=== PATIENT | female | born 1945 | race Caucasian/White ===

== ENCOUNTER 2017-05-05 05:37 | Day surgery (SDC) | payer MEDICARE ==
[2017-05-04 10:51] VITALS: BMI 30.1
[2017-05-05 06:55] LABS: #Eosinphils 0.2 thou/uL (0.0-0.7); #Neutrophils 5.4 thou/uL (1.40-6.50); %Basophils 0.5 % (0.0-1.0); %Eosinophils 2.4 % (0.0-10.0); %Lymphocytes 23.1 % (21.0-51.0); %Monocytes 11.8 % (0.0-10.0); %Neutrophils 62.2 % (42.0-75.0); Hemoglobin 12.2 g/dL (12.0-16.0); Mean Corpuscular HGB CONC 33.1 g/dL (32.0-36.0); Mean Corpuscular Volume 96.6 fl (81.0-99.0); Mean Platelet Volume 8.6 fL (7.4-10.4); Platelet Count 284 thou/uL (130-400); RBC Distribution Width 12.4 % (11.5-14.5); Red Blood Cell (RBC) Count 3.82 mill/uL (4.20-5.40); White Blood Cell (WBC) Count 8.6 thou/uL (4.8-10.8)
[2017-05-05 07:13] LABS: INR-International Normal Ratio 0.9; PTT 26.4 SEC (22.9-36.1); Prothrombin Time 11.9 SEC (12.0-14.7)
[2017-05-05 07:14] LABS: Anion Gap 17 mmol/L (10-20); BUN (Urea Nitrogen) 14 mg/dL (9.8-20.1); Calc. Creatinine Clearance 99 mL/min (70-130); Calcium 9.3 mg/dL (7.8-10.44); Carbon Dioxide 25 mmol/L (23-31); Chloride 103 mmol/L (98-107); Estimated GFR-MDRD 75; Glucose 109 mg/dL (83-110); Potassium 3.5 mmol/L (3.5-5.1); Sodium 141 mmol/L (136-145)
[2017-05-05] MEDS ORDERED: Midazolam HCl 2 mg/2 ml Vial ONE (07:22)
[2017-05-05] MEDS ORDERED: Fentanyl 100 MCG/2 ML VIAL ONE (07:22)
--- NOTE | 2017-05-05 08:52 | OP ---
DATE OF PROCEDURE: 05/05/2017 PREOPERATIVE DIAGNOSIS: Acute L3 compression fracture with delayed healing. POSTOPERATIVE DIAGNOSIS: Acute L3 compression fracture with delayed healing. ANESTHESIA: TIVA. PROCEDURE: L3 kyphoplasty/vertebral augmentation with MMA. SUMMARY: Risks and benefits were discussed and informed consent was obtained. She was taken to the outside laborer using the biplane fluoroscopy unit. After standard prep and drape, the right L3 pedicle was easily identified. Local anesthetic was used with 50% mixture of 2% lidocaine and 0.25% Marcaine wi th epinephrine. Trocar was advanced easily down to the L3 pedicle and advanced under AP images avoid ing the medial wall of the pedicle. Lateral images were obtained. Upon reaching the vertebral body, the trocar was passed to the junction of the posterior one-third, anterior two-thirds of the vertebr al body. The stylet was removed. The curved needle balloon catheter was then passed into the trocar crossing the midline, taking care not to violate the anterior wall of the vertebral body. Balloon w as passed. Catheter was removed. Balloon was inflated. Maximum pressure of 110 psi to achieve cavi ty creation. The balloon was deflated and negative pressure withdrawn. Curve needle was then passed through the trocar for MMA injection. Injection was accomplished over the superior endplate. Total of 3 mL was noted that MMA was passing into the endplate slight pass into the disk space. Injection was terminated. Needle was then redirected over the inferior endplate and an additional 3 mL of MMA was injected achieving bilateral spread, anterior and posterior spread, and MMA injection was termin ated. Upon contrast, MMA reaching the posterior wall. The stylet was then replaced into the trocar. Trocar was removed, terminating the procedure. She tolerated the procedure well. There were no co mplications. Total MMA injected was 6 mL.
[2017-05-05] MEDS ORDERED: Propofol 200 MG/20 ML VIAL ONE (13:18)
[2017-05-05] MEDS ORDERED: Glycopyrrolate 0.2 MG/ML 5 ML SYRINGE ONE (13:18)
[2017-05-05] MEDS ORDERED: Iopamidol 370 76% 50 ML VIAL FS ONE (16:10)
--- NOTE | 2017-05-06 07:16 | EKG ---
Test Reason : PREOP Blood Pressure : / mmHG Vent. Rate : 067 BPM Atrial Rate : 067 BPM P-R Int : 174 ms QRS Dur : 104 ms QT Int : 432 ms P-R-T Axes : 074 024 049 degrees QTc Int : 456 ms Normal sinus rhythm Normal ECG No previous ECGs available Confirmed by MELI CARTER, DR. Villegas ([id number]) on 05/06/2017 7:16:09 AM Referred By: BASHIR Confirmed By:DR. Bakari GARRISON MD
== END 2017-05-05 10:44 | disposition home or self-care (01) ==
LOC: CCL 05:37
PROVIDERS: ATTEND Anesthesiology Pain Medicine
PROC: 0QS03ZZ Reposition Lumbar Vertebra, Percutaneous Approach (ICD-10-PCS; principal; 2017-05-05)
PROC: 0QU03JZ Supplement Lumbar Vertebra with Synthetic Substitute, Percutaneous Approach (ICD-10-PCS; 2017-05-05)
DX: S32.039G Unspecified fracture of third lumbar vertebra, subsequent encounter for fracture with delayed healing (principal); M79.7 Fibromyalgia; J44.9 Chronic obstructive pulmonary disease, unspecified; Z79.891 Long term (current) use of opiate analgesic; Z79.899 Other long term (current) drug therapy; Z88.5 Allergy status to narcotic agent; Z88.2 Allergy status to sulfonamides; Z88.8 Allergy status to other drugs, medicaments and biological substances; Z98.82 Breast implant status; Z95.1 Presence of aortocoronary bypass graft; Z96.1 Presence of intraocular lens; Z90.710 Acquired absence of both cervix and uterus; Z90.81 Acquired absence of spleen; Z90.49 Acquired absence of other specified parts of digestive tract; Z87.440 Personal history of urinary (tract) infections
CPT/HCPCS: 22514; 80048; 85025; 85610; 85730; 93005; 93010; J2250; J2704; J3010

== ENCOUNTER 2017-08-08 12:55 | Day surgery (SDC) | payer MEDICARE ==
[2017-08-07 09:22] VITALS: BMI 29.1
[2017-08-08 14:52] LABS: Hemoglobin 12.5 g/dL (12.0-16.0); Mean Corpuscular HGB CONC 31.3 g/dL (32.0-36.0); Mean Corpuscular Hemoglobin 29.9 pg (27.0-31.0); Mean Corpuscular Volume 95.7 fl (81.0-99.0); Platelet Count 282 thou/uL (130-400); RBC Distribution Width 12.4 % (11.5-14.5); Red Blood Cell (RBC) Count 4.17 mill/uL (4.20-5.40); White Blood Cell (WBC) Count 8.4 thou/uL (4.8-10.8)
[2017-08-08 15:13] LABS: Anion Gap 12 mmol/L (10-20); BUN (Urea Nitrogen) 11 mg/dL (9.8-20.1); Calc. Creatinine Clearance 107 mL/min (70-130); Carbon Dioxide 29 mmol/L (23-31); Chloride 100 mmol/L (98-107); Estimated GFR-MDRD 82; Glucose 88 mg/dL (83-110); Potassium 3.8 mmol/L (3.5-5.1); Sodium 137 mmol/L (136-145)
[2017-08-08] MEDS ORDERED: CEFAZOLIN/Water 2 GM/20 ML SYRINGE ONE (15:17)
--- NOTE | 2017-08-08 16:08 | EKG ---
Test Reason : PREOP Blood Pressure : / mmHG Vent. Rate : 063 BPM Atrial Rate : 063 BPM P-R Int : 182 ms QRS Dur : 108 ms QT Int : 438 ms P-R-T Axes : 079 027 056 degrees QTc Int : 448 ms Normal sinus rhythm Non-specific intra-ventricular conduction delay Abnormal ECG Confirmed by POP ELAM ([id number]) on 08/08/2017 4:08:10 PM Referred By: BASHIR Confirmed By:POP ELAM
[2017-08-08] MEDS ORDERED: PROPOFOL 200 MG/20 ML VIAL ONE (16:10)
[2017-08-08] MEDS ORDERED: Bupivacaine 0.5% 10 ML VIAL ONE (16:28)
[2017-08-08] MEDS ORDERED: Lidocaine 2% w/Epinephrine 1:200K 20 ML VIAL ONE (16:30)
[2017-08-08] MEDS ORDERED: Bupivacaine PF 0.5% 30 ML VIAL ONE (16:30)
[2017-08-08] MEDS ORDERED: Propofol 500 MG/50 ML VIAL ONE (16:42)
[2017-08-08] MEDS ORDERED: Fentanyl 100 MCG/2 ML VIAL ONE ×2 (16:42→18:03)
--- NOTE | 2017-08-08 19:16 | OP ---
DATE OF SERVICE: 08/08/2017 PREOPERATIVE DIAGNOSIS: Acute T9 compression fracture with delayed healing. POSTOPERATIVE DIAGNOSIS: Acute T9 compression fracture with delayed healing. PROCEDURE: Kyphoplasty T9 percutaneous. ANESTHESIA: TIVA. SUMMARY: Risks and benefits were discussed, informed consent was obtained, the patient was taken to the blood bank laboratory technician and placed in the prone position. Biplane fluoroscopy was utilized to identify the T9 v ertebral body counting from the T12 level and comparing with MRI imaging. The appropriate cephalad c audad obliques were obtained to align the pedicle in the middle of the vertebral body, the left pedic le was chosen. After adequate local anesthesia, an 11 gauge [facility] trocar was advanced easily into the left pedicle using AP and lateral views to ensure proper placement. The needle was placed into t he vertebral body at the juncture of the posterior 1/3 and anterior 2/3s of the vertebral body. The curved needle was then placed into the vertebral body such across midline. Prior to this biopsy was obtained and sent to path. Then, the curved needle was placed into the vertebral body, crossing the midline using AP and lateral views to ensure midline vertebral body placement. Cortoss was prepped i n the standard fashion, injected through the curved needle, a total of 3.5 mL of cortoss covering bot h right and left and anterior and posterior views. Cortoss approaching the posterior aspect of the v ertebral body and injection was then terminated. The curved needle was removed intact. The stylet w as replaced through the trocar and the trocar was removed without complications.
== END 2017-08-08 19:10 | disposition home or self-care (01) ==
LOC: CCL 12:55
PROVIDERS: ATTEND Anesthesiology Pain Medicine
PROC: 0PS43ZZ Reposition Thoracic Vertebra, Percutaneous Approach (ICD-10-PCS; principal; 2017-08-08)
PROC: 0PU43JZ Supplement Thoracic Vertebra with Synthetic Substitute, Percutaneous Approach (ICD-10-PCS; 2017-08-08)
PROC: 0P943ZX Drainage of Thoracic Vertebra, Percutaneous Approach, Diagnostic (ICD-10-PCS; 2017-08-08)
DX: S22.079G Unspecified fracture of T9-T10 vertebra, subsequent encounter for fracture with delayed healing (principal); M46.1 Sacroiliitis, not elsewhere classified; I51.9 Heart disease, unspecified; J44.9 Chronic obstructive pulmonary disease, unspecified; M79.7 Fibromyalgia; E07.9 Disorder of thyroid, unspecified; K21.9 Gastro-esophageal reflux disease without esophagitis; Z88.2 Allergy status to sulfonamides; Z88.8 Allergy status to other drugs, medicaments and biological substances; Z95.1 Presence of aortocoronary bypass graft; Z98.890 Other specified postprocedural states; Z86.79 Personal history of other diseases of the circulatory system; Z82.49 Family history of ischemic heart disease and other diseases of the circulatory system
CPT/HCPCS: 22513; 80048; 85027; 88307; 93005; 96374; C1769; 36415; 93010; J2704; J3010; J3490; S0020

== ENCOUNTER 2019-11-13 12:17 | Outpatient (CLI) | payer MEDICARE ==
--- NOTE | 2019-11-13 13:55 | CT ---
CT LUMBAR SPINE: 11/13/19 Axial tomograms obtained with multiplanar reconstruction. INDICATIONS: Lumbar disc herniation. Low back pain. COMPARISON: Comparison made to MRI lumbar spine dated 04/25/17. FINDINGS: The severe compression deformity involving the L1 vertebrae with vertebroplasty change is again seen. This is a vertebra plana type deformity centrally. There is mild retropulsion posteriorly. The findi ngs at this level do not appear significantly changed when compared to 04/25/17. There are new vertebroplasty changes at L3 today. There is central compression of L3. Vertebroplasty cement extends into the L2-3 disc space. The other lumbar vertebrae maintain height. Severe degenerative disc changes are noted at L4-5 and at L5-S1 with vacuum phenomenon and loss of disc space. Findings at each disc level are described. T12-L1: Mild disc bulge. No central canal stenosis at the disc space. There is mild retropulsion of t he posterior cortex of L1 as noted above. This flattens the thecal sac and results in mild central ca nal stenosis. L1-2: No significant disc bulge or protrusion. No central canal or foraminal stenosis. L2-3: Mild disc bulge. Moderate facet hypertrophy. Mild to moderate central canal stenosis. Vertebrop lasty cement is seen in the L2-3 disc space. Compression deformity at L3 with vertebroplasty changes as described above. L3-4: Mild disc bulge. Moderate facet hypertrophy. Mild central canal stenosis. No significant forami nal stenosis. L4-5: A slight anterolisthesis with degenerative disc changes as noted above. There is a diffuse disc bulge. Moderate facet and ligamentous hypertrophy. Mild to moderate central canal stenosis. There i s right foraminal encroachment from facet hypertrophy and asymmetric disc bulge extending into the ri ght foramina. L5-S1: Mild disc bulge. Congenitally small thecal sac. There is moderate facet hypertrophy; however , no significant central canal stenosis due to small thecal sac. There is bilateral foraminal narrowi ng more so on the right due to hypertrophic changes. There is a small tissue mass density in the spinal canal to the left of midline at S1. 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 IMPRESSION: Degenerative and postoperative changes of the lumbar spine as described above. See description at eac h level. POS: AH
== END 2019-11-13 12:18 | disposition home or self-care (01) ==
LOC: SCSCT 12:17
PROVIDERS: ATTEND Anesthesiology Pain Medicine
DX: M51.26 Other intervertebral disc displacement, lumbar region (principal); M47.816 Spondylosis without myelopathy or radiculopathy, lumbar region; Z98.890 Other specified postprocedural states
CPT/HCPCS: 72131